=== PATIENT | female | born 1945 | race Two or more races ===

== ENCOUNTER 2018-01-07 05:15 | Day surgery (SDC) | payer OTHER ==
[2018-01-07] MEDS ORDERED: ULTRACET PO (09:17)
[2018-01-07] MEDS ORDERED: MACROBID 100 M100 MG PO (09:17)
== END 2018-01-07 13:40 | disposition home or self-care (01) ==
LOC: CIR.AMB 05:15
DX: N81.3 Complete uterovaginal prolapse (principal); N39.3 Stress incontinence (female) (male)
CPT/HCPCS: 57282; 57240; 57288; C1771

== ENCOUNTER 2023-07-27 13:22 | Emergency (ER) | payer OTHER ==
[~2023-07-27] VITALS: Ht 162.6 cm; Wt 68.0 kg
[~2023-07-27 13:22] MED LIST: MACROBID 100 M100 MG PO; ULTRACET PO
[2023-07-27] MEDS ORDERED: GLUMETZA1000 MG (14:21)
[2023-07-27] MEDS ORDERED: COZAAR100 MG PO (14:21)
[2023-07-27] MEDS ORDERED: ZOCOR20 MG PO (14:22)
[2023-07-27] MEDS ORDERED: ECOTRIN81 MG (14:22)
[2023-07-27] MEDS ORDERED: SYNTHROID75 MCG PO (14:22)
== END 2023-07-27 15:41 | disposition home or self-care (01) ==
LOC: ER 13:23
DX: M54.59 Other low back pain (principal); W01.0XXA Fall on same level from slipping, tripping and stumbling without subsequent striking against object, initial encounter; Y93.89 Activity, other specified; Y92.018 Other place in single-family (private) house as the place of occurrence of the external cause
CPT/HCPCS: 72100; 96372; 99284; J1885